=== PATIENT | female | born 1975 ===

== ENCOUNTER 2019-10-26 16:34 | Emergency (ER) | payer BC, MEDICAID ==
[2019-10-26 17:22] LABS: ACETAMINOPHEN < 2 ug/mL (<2)
[2019-10-26] MEDS ORDERED: Sodium Chloride 0.9% 1,000 ML IV ONE (17:25)
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
[2019-10-26] MEDS ORDERED: Naloxone 0.4 MG/ML SDV IVPUSH ONE (18:09)
--- NOTE | 2019-10-28 09:15 | ER ---
DATE SEEN: 10/26/2019 ADDENDUM: I saw this patient after Dr. Vinson had seen her. She had come in with altered mental status, thought to be due to polypharmacy. We did call the Poison Control, and they advised us to watch her for 4 hours after the Narcan. She did get 1 L of normal saline. She improved. Her urine revealed oxycodone, benzodiazepines, marijuana, but no alcohol in her system. She denied any suicidal ideation or tendency after she woke up. I called her father, who came from [place] and picked her up. At discharge her blood pressure, temperature, and pulse were normal. DISCHARGE IMPRESSION: 1. Polypharmacy. 2. Opioid intoxication. PLAN: I discussed with the father to take her to her PCP and to discuss how she can be treated for opioid addiction. /[id number] ANDERSON/JAMIN
== END 2019-10-26 22:33 | disposition home or self-care (01) ==
LOC: EDBD → FB.ED 16:34
DX: R41.82 Altered mental status, unspecified (principal); I10 Essential (primary) hypertension; G47.10 Hypersomnia, unspecified; D50.9 Iron deficiency anemia, unspecified; D75.1 Secondary polycythemia; R79.89 Other specified abnormal findings of blood chemistry; E86.0 Dehydration; G93.89 Other specified disorders of brain; R74.8 Abnormal levels of other serum enzymes; F11.10 Opioid abuse, uncomplicated
CPT/HCPCS: 36415; 71045; 80053; 80305; 80307; 81001; 81025; 82140; 82803; 83605; 83735; 84443; 84484; 85025; 85610; 86140; 87040; 93005; 96361; 96374; 99285; J2310; J7030